=== PATIENT | female | born 1965 | race Caucasian/White ===

== ENCOUNTER → 2016-11-13 | Outpatient (CLI) | payer BC ==
[~2016-11-13] MED LIST: SINCALIDE 5 MCG INJ IV SCH
--- NOTE | 2016-11-13 16:07 | RADRPT ---
PROCEDURE: HIDA scan with CCK CLINICAL INDICATION: 51 -year-old patient with abdominal pain. TECHNIQUE: Following the intravenous injection of 7.3 mCi of Tc-99m mebrofenin, multiple images of the abdomen were obtained up to 60 minutes post injection. The patient was then given an intraveno us injection of approximately 1.5 mcg of CCK and imaging acquisition was continued for additional 30 minutes. COMPARISON: No prior HIDA scans. FINDINGS: The liver is promptly visualized, demonstrates homogeneous distribution of radionuclide. There is visualization of the common bile duct, gallbladder, and gastrointestinal activity as a norm al time. Following CCK administration, there is evidence of decreased ejection fraction of the gallbladder ca lculated to be 30 % (borderline normal is 35%-50%, normal is greater than 50%). IMPRESSION: Decreased ejection fraction of the gallbladder. RPTAT: HH .Kalie Carrillo MD, MD Date Time Electronically viewed and signed by .Kalie Carrillo MD, on 11/13/2016 16:07 .L/
== END | disposition home or self-care (01) ==
LOC: NUC 11:28
PROVIDERS: ATTEND Family Medicine
DX: K82.8 Other specified diseases of gallbladder (principal); R94.5 Abnormal results of liver function studies; R10.9 Unspecified abdominal pain
CPT/HCPCS: 78227; J2805